=== PATIENT | female | born 1990 | race African-American/Black ===

== ENCOUNTER 2022-06-09 12:47 | Emergency (ER) | payer SELFPAY ==
[2022-06-09] MEDS ORDERED: Oxymetazoline HCl 0.05% (30 ML BOT) ONE (15:21)
[2022-06-09] MEDS ORDERED: Albuterol 200 PUFF INH ONE (15:21)
[2022-06-09 16:09] LABS: SARS-CoV-2 NAA Rapid Test DETECTED (NotDetected)
== END 2022-06-09 15:33 | disposition home or self-care (01) ==
LOC: ERS 12:47
DX: B34.9 Viral infection, unspecified (principal); Z20.822 Contact with and (suspected) exposure to COVID-19
CPT/HCPCS: 99283

== ENCOUNTER 2023-09-19 11:49 | Emergency (ER) | payer MEDICAID, OTHER, SELFPAY ==
[2023-09-19 16:08] LABS: Bacteria/HPF None Seen HPF (None Seen); Bilirubin Negative (Negative); Blood, Urine Negative (Negative); CAUTI Indications for Culture Pregnancy; Clarity Turbid (Clear); Glucose, Urine (Dipstick) Normal (Negative); Ketone, Urine Negative (Negative); Leukocyte 25 Leu/uL (Negative); Nitrite Negative (Negative); Protein, Urine (Dipstick) 10 mg/dL (Neg-Trace); RBC/HPF 0-3 HPF (0-3); Specific Gravity, Urine 1.021 (1.002-1.036); Squamous Epithelial 0-3 HPF (0-3); Urobilinogen Normal mg/dL (Less than 2); WBC/HPF 0-3 HPF (0-3); pH, Urine 7.5 (5.0-9.0)
[2023-09-19 16:10] LABS: Urine Culture Reflex Yes Yes
[2023-09-20 20:52] LABS: Chlamydia by PCR, Vaginal Swab Not Detected (NotDetected); GC by PCR, Vaginal Swab Not Detected (NotDetected)
== END 2023-09-19 18:18 | disposition home or self-care (01) ==
LOC: ERS 11:49
DX: O99.891 Other specified diseases and conditions complicating pregnancy (principal); R10.30 Lower abdominal pain, unspecified; O30.001 Twin pregnancy, unspecified number of placenta and unspecified number of amniotic sacs, first trimester; Z3A.12 12 weeks gestation of pregnancy; Z55.0 Illiteracy and low-level literacy
CPT/HCPCS: 76815; 81001; 87086; 87480; 87491; 87510; 87591; 87660